=== PATIENT | female | born 1945 | race Caucasian/White ===

== ENCOUNTER 2025-04-18 16:34 | Emergency (ER) | payer MEDICARE, OTHER ==
[2025-04-18] MEDS ORDERED: dilTIAZem 25 MG/5 ML VIAL ONE (16:52)
[2025-04-18 17:03] LABS: #Basophils 0.03 10x3/uL (0.0-0.2); #Eosinophils 0.08 10x3/uL (0.0-0.5); #Monocytes 0.59 10x3/uL (0.0-1.1); #Neutrophils 3.07 10x3/uL (1.5-8.4); %Basophils 0.6 % (0.0-2.0); %Eosinophils 1.6 % (0.0-6.0); %Lymphocytes 24.7 % (18.0-47.0); %Monocytes 11.8 % (0.0-10.0); %Neutrophils 61.1 % (40.0-75.0); Hematocrit 32.7 % (34.9-44.5); Hemoglobin 10.5 g/dL (12.0-15.5); Mean Corpuscular Hemoglobin 27.1 pg (27.0-33.0); Mean Corpuscular Volume 84.3 fL (81.6-98.3); Platelet Count 153 10x3/uL (150-450); Red Blood Cell (RBC) Count 3.88 10x6/uL (3.90-5.03); White Blood Cell (WBC) Count 5.02 10x3/uL (3.5-10.5)
[2025-04-18 17:21] LABS: ALT (SGPT) 23 U/L (Less than 34); AST (SGOT) 33 U/L (11-34); Albumin 3.7 g/dL (3.1-4.5); Alkaline Phosphatase 104 U/L (40-110); Anion Gap 16 mmol/L (10-20); BUN (Urea Nitrogen) 36 mg/dL (9.8-20.1); Bilirubin, Total 0.3 mg/dL (0.3-1.2); Calc. Creatinine Clearance 0 mL/min (70-130); Calcium 8.5 mg/dL (7.8-10.44); Carbon Dioxide 17 mmol/L (23-31); Chloride 110 mmol/L (98-107); Globulin 3.0 g/dL (2.4-3.5); Glucose 90 mg/dL (83-110); Potassium 4.2 mmol/L (3.5-5.1); Sodium 139 mmol/L (136-145); Troponin I 0.012 ng/mL (< 0.028)
[2025-04-18 19:02] LABS: Magnesium 1.9 mg/dL (1.6-2.6)
== END 2025-04-18 20:55 | disposition short-term general hospital (02) ==
LOC: CSHERS 16:34
DX: I48.91 Unspecified atrial fibrillation (principal); I10 Essential (primary) hypertension; I25.2 Old myocardial infarction
CPT/HCPCS: 36415; 71045; 80053; 83735; 83880; 84484; 85025; 93005; 93010; 96374; 96376